=== PATIENT | female | born 1995 | race American Indian/Alaskan Native ===

== ENCOUNTER 2016-08-24 23:43 | Emergency (ER) | payer SELFPAY ==
[2016-08-25 00:47] LABS: Basophils % (Auto) 0.5 % (0.0-1.8); Eosinophils % (Auto) 3.7 % (0.0-4.3); Hematocrit 36.6 % (30.3-42.9); Hemoglobin 12.3 gm/dl (10.1-14.3); Mean Corpuscular HGB Conc 34 % (30-34); Mean Corpuscular Hemoglobin 27 pg (28-32); Mean Corpuscular Volume 81 fl (79-97); Platelet Count 455 K/mm3 (140-440); Red Blood Count 4.54 M/mm3 (3.65-5.03); Red Cell Distribution Width 14.2 % (13.2-15.2); White Blood Count 6.5 K/mm3 (4.5-11.0)
[2016-08-25 01:04] LABS: Anion Gap 14 mmol/L; Blood Urea Nitrogen 14 mg/dL (7-17); Calcium 9.2 mg/dL (8.4-10.2); Carbon Dioxide 27 mmol/L (22-30); Chloride 103.8 mmol/L (98-107); Glucose 93 mg/dL (65-100); Sodium 141 mmol/L (137-145)
[2016-08-25] MEDS ORDERED: MOTRIN PO ONE (02:34)
[2016-08-25] MEDS ORDERED: NORCO 5/325 PO ONE (02:34)
--- NOTE | 2016-08-25 02:40 | Emergency Department Report ---
HPI - General Chief Complaint: Chest Pain Time Seen by Provider: 08/25/16 02:24 - HPI HPI: Room 6 Patient is a 21-year-old female presenting with a chief complaint of headache tearing right eye and chest pain. Patient states last week she was diagnosed with strep throat and since then she has developed an occipital headache drainage from her right eye which also itches and goodwin as well as left chest pain that was sharp and pleuritic in nature. Patient does admit to a cough but states it is nonproductive. Patient denies any recent flights or long car trips. The patient gives her pain a score of 7/10. The patient states her right eye itches badly and goodwin Location: [see above] Duration: One week Quality: Sharp Severity: 7/10 Modifying factors: [see above] Context: [see above] Mode of transportation: [not driving] ED Past Medical Hx - Past Medical History Hx Asthma: Yes Additional medical history: Sciatica - Surgical History Past Surgical History?: No Additional Surgical History: tonsilectomy/adenoidectomy - Family History Family history: no significant - Social History Smoking Status: Never Smoker Substance Use Type: None - Medications Home Medications: Home Medications Medication Instructions Recorded Confirmed Last Taken Type Cetirizine HCl [ZyrTEC] 10 mg PO QHS #30 capsule 08/04/14 Unknown Rx Fluticasone [Flonase] 1 spray NS QDAY #1 bottle 08/04/14 Unknown Rx methylPREDNISolone [Medrol Dose 4 mg PO .TAPER #1 tab.ds.pk 08/04/14 Unknown Rx [place]] ALBUTEROL Inhaler [ProAir HFA 1 - 2 puff IH QID PRN #1 inha 10/25/14 Unknown Rx Inhaler] Ibuprofen [Motrin] 800 mg PO Q8HR #30 tablet 10/25/14 Unknown Rx traMADol [Ultram 50 MG tab] 50 mg PO Q6HR PRN #15 tablet 10/25/14 Unknown Rx HYDROcodone/APAP 5-325 [[place] 1 - 2 each PO Q6HR PRN #10 tablet 08/25/16 Unknown Rx 5/325] Ibuprofen [Motrin 800 MG tab] 800 mg PO Q8HR PRN #20 tablet 08/25/16 Unknown Rx Polymyxin B Sulf/Trimethoprim 1 drop OD QID #10 ml 08/25/16 Unknown Rx [Polytrim Eye Drops 30572atwkj/0.1%] ED Review of Systems ROS: Stated complaint: CHEST PAIN Other details as noted in HPI Comment: All other systems reviewed and negative Constitutional: denies: chills, fever Eyes: eye discharge ENT: denies: ear pain, throat pain Respiratory: cough Cardiovascular: denies: palpitations Endocrine: no symptoms reported Gastrointestinal: denies: abdominal pain, nausea, diarrhea Genitourinary: denies: urgency, dysuria, discharge Musculoskeletal: denies: back pain, joint swelling, arthralgia Skin: denies: rash, lesions Neurological: headache Psychiatric: denies: anxiety, depression Hematological/Lymphatic: denies: easy bleeding, easy bruising Physical Exam - Physical Exam Vital Signs: Vital Signs 08/25/16 08/25/16 00:03 00:53 Temperature 98.4 F Pulse Rate 76 Respiratory 16 20 Rate Blood Pressure 122/69 Blood Pressure 122/69 [Left] O2 Sat by Pulse 100 99 Oximetry Physical Exam: GENERAL: The patient is well-developed well-nourished female lying on stretcher not appearing to be in acute distress. [] HEENT: Normocephalic. Atraumatic. Extraocular motions are intact. Patient has moist mucous membranes. Slight injection of the conjunctiva right eye. No hyphema. No hypopyon NECK: Supple. No meningitic signs are noted. Trachea midline CHEST/LUNGS: Clear to auscultation. There is no respiratory distress noted. HEART/CARDIOVASCULAR: Regular. There is no tachycardia. There is no gallop rub or murmur. ABDOMEN: Abdomen is soft, nontender. Patient has normal bowel sounds. There is no abdominal distention. SKIN: There is no rash. There is no edema. There is no diaphoresis. NEURO: The patient is awake, alert, and oriented. The patient is cooperative. The patient has normal speech MUSCULOSKELETAL: There is no evidence of acute injury. ED Course Vital Signs 08/25/16 08/25/16 00:03 00:53 Temperature 98.4 F Pulse Rate 76 Respiratory 16 20 Rate Blood Pressure 122/69 Blood Pressure 122/69 [Left] O2 Sat by Pulse 100 99 Oximetry ED Medical Decision Making - Lab Data Result diagrams: 08/25/16 00:15 08/25/16 00:15 Laboratory Tests 08/25/16 08/25/16 08/25/16 00:15 00:15 02:36 WBC 6.5 RBC 4.54 Hgb 12.3 Hct 36.6 MCV 81 MCH 27 L MCHC 34 RDW 14.2 Plt Count 455 H Lymph % (Auto) 37.2 H [place] % (Auto) 7.6 H Eos % (Auto) 3.7 Baso % (Auto) 0.5 Lymph # 2.4 [place] # 0.5 Eos # 0.2 Baso # 0.0 Seg Neutrophils % 51.0 Seg Neutrophils # 3.3 D-Dimer Sodium 141 Potassium 4.0 Chloride 103.8 Carbon Dioxide 27 Anion Gap 14 BUN 14 Creatinine 0.7 Estimated GFR > 60 BUN/Creatinine Ratio 20.00 Glucose 93 Calcium 9.2 Troponin T < 0.010 < 0.010 Urine HCG, Qual 08/25/16 08/25/16 02:36 04:34 WBC RBC Hgb Hct MCV MCH MCHC RDW Plt Count Lymph % (Auto) [place] % (Auto) Eos % (Auto) Baso % (Auto) Lymph # [place] # Eos # Baso # Seg Neutrophils % Seg Neutrophils # D-Dimer 200.10 Sodium Potassium Chloride Carbon Dioxide Anion Gap BUN Creatinine Estimated GFR BUN/Creatinine Ratio Glucose Calcium Troponin T Urine HCG, Qual Negative - EKG Data -: EKG Interpreted by Me EKG shows normal: sinus rhythm Rate: normal - EKG Data When compared to previous EKG there are: no significant change Interpretation: unchanged when compared t (10/25/2014) - Radiology Data Radiology results: image reviewed (chest x-ray) interpreted by me: Chest x-ray-no focal infiltrates, no pneumothorax - Differential Diagnosis PE, pneumonia, bronchitis, pneumothorax, ACS, conjunctivitis Critical care attestation.: If time is entered above; I have spent that time in minutes in the direct care of this critically ill patient, excluding procedure time. ED Disposition Clinical Impression: Pleurisy, Conjunctivitis Disposition: DC-01 TO HOME OR SELFCARE Is pt being admited?: No Does the pt Need Aspirin: No Condition: Stable Instructions: Pleurisy (ED), Conjunctivitis (ED) Additional Instructions: Return to the emergency department immediately should you develop worsening symptoms, fever, inability to tolerate food or liquid or any other concerns. Prescriptions: HYDROcodone/APAP 5-325 [[place] 5/325] 1 - 2 each PO Q6HR PRN #10 tablet PRN Reason: Pain Ibuprofen [Motrin 800 MG tab] 800 mg PO Q8HR PRN #20 tablet PRN Reason: Pain Polymyxin B Sulf/Trimethoprim [Polytrim Eye Drops [id number]/0.1%] 1 drop OD QID #10 ml Referrals: PRIMARY CARE, [Primary Care Provider] - 3-5 Days MILADYS SARABIA MD [Staff Physician] - 3-5 Days (Dr. Sarabia is a industrial economics professor. Please follow up with her for further evaluation) ABDIRASHID SIMON MD [Staff Physician] - 3-5 Days (Dr. Simon is an card player. Please follow up with him for further evaluation) Time of Disposition: 05:21
[2016-08-25 03:18] VITALS: BP 122/78
--- NOTE | 2016-08-25 09:42 | XRay Report ---
ROUTINE CHEST, TWO VIEWS: HISTORY: chest pain. The trachea, heart, mediastinal contour, lung melendrez and bony thorax are unremarkable. IMPRESSION: Unremarkable chest x-ray. No significant change since 08/04/14.
== END 2016-08-25 05:49 | disposition home or self-care (01) ==
LOC: ED 23:43
DX: R09.1 Pleurisy (principal); H10.9 Unspecified conjunctivitis; J45.909 Unspecified asthma, uncomplicated
CPT/HCPCS: 36415; 71020; 80048; 81025; 84484; 85025; 85379; 93005; 93010

== ENCOUNTER 2017-07-19 13:54 | Emergency (ER) | payer MEDICAID ==
[2017-07-19 13:59] VITALS: BP 121/63
[2017-07-19] MEDS ORDERED: DELTASONE PO ONE (20:30)
--- NOTE | 2017-07-19 20:30 | Emergency Department Report ---
ED Rash HPI - HPI Chief Complaint: Skin Rash Stated Complaint: RED SPOTS ON ARMS/LEGS Time Seen by Provider: 07/19/17 20:30 Duration: 2 weeks Location: Chest, Back, Abdomen, Upper Extremities, Lower Extremities Rash Symptoms: Yes Itching (generalized to extremities and), No Facial Swelling , No Tongue/Oral Swelling, No Breathing Difficulties, No Choking Sensation, No Wheezing/Dyspnea, No Peeling, No Blistering, No Fever, No Lightheaded, No Malaise, No Myalgias Severity: severe (itching) Other History: Patient reports that she has skin rash and itching for 2 weeks and she is unaware of anything new in her environment. She reports itching and denies any pain. Denies any fever or chills. Denies any cough, stridor, wheezing, swelling of lip or tongue. Denies any respiratory difficulties. Immunizations up-to-date. Denies any insect bite. Patient described severe itching. Reports bumps all over her upper, lower extremities and abdomen and back. She says she's been taking wpcp-spk-gaonoep cortisone but is not helping. Itching is not relieved by any medication and she says she took Benadryl and that didn't help either. No exacerbating factors. She says she lives with roommates. Denies room made or kids with similar symptoms. Denies any known bed bug exposure. Patient is here by herself. Pain is 0/10 ED Review of Systems ROS: Stated complaint: RED SPOTS ON ARMS/LEGS Other details as noted in HPI Constitutional: denies: chills, fever Eyes: denies: eye pain, eye discharge, vision change ENT: denies: ear pain, throat pain Respiratory: denies: cough, shortness of breath, SOB with exertion, wheezing Cardiovascular: denies: chest pain, palpitations, dyspnea on exertion, edema, syncope Gastrointestinal: denies: abdominal pain, nausea, vomiting, diarrhea Genitourinary: denies: discharge Musculoskeletal: denies: back pain, joint swelling, arthralgia Skin: rash, pruritus. denies: lesions Neurological: denies: headache, weakness ED Past Medical Hx - Past Medical History Previous Medical History?: Yes Hx Asthma: Yes Additional medical history: Sciatica - Surgical History Past Surgical History?: Yes Additional Surgical History: tonsilectomy/adenoidectomy - Family History Family history: diabetes, hypertension - Social History Smoking Status: Never Smoker Substance Use Type: None Other Social History: Single mom - Medications Home Medications: Home Medications Medication Instructions Recorded Confirmed Last Taken Type Cetirizine HCl [ZyrTEC] 10 mg PO QHS #30 capsule 08/04/14 Unknown Rx Fluticasone [Flonase] 1 spray NS QDAY #1 bottle 08/04/14 Unknown Rx methylPREDNISolone [Medrol Dose 4 mg PO .TAPER #1 tab.ds.pk 08/04/14 Unknown Rx [place]] ALBUTEROL Inhaler [ProAir HFA 1 - 2 puff IH QID PRN #1 inha 10/25/14 Unknown Rx Inhaler] Ibuprofen [Motrin] 800 mg PO Q8HR #30 tablet 10/25/14 Unknown Rx traMADol [Ultram 50 MG tab] 50 mg PO Q6HR PRN #15 tablet 10/25/14 Unknown Rx HYDROcodone/APAP 5-325 [[place] 1 - 2 each PO Q6HR PRN #10 tablet 08/25/16 Unknown Rx 5/325] Ibuprofen [Motrin 800 MG tab] 800 mg PO Q8HR PRN #20 tablet 08/25/16 Unknown Rx Polymyxin B Sulf/Trimethoprim 1 drop OD QID #10 ml 08/25/16 Unknown Rx [Polytrim Eye Drops [id number]/0.1%] Prednisone [predniSONE 10 mg 10 mg PO .TAPER 6 Days #1 tab.ds.pk 07/19/17 Unknown Rx (6-Day Pack, 21 Tabs)] diphenhydrAMINE [Benadryl CAP] 50 mg PO QHS PRN #5 capsule 07/19/17 Unknown Rx hydrOXYzine HCL [Atarax] 25 mg PO Q6HR PRN #16 tablet 07/19/17 Unknown Rx Rash Exam - Exam General: Vital signs noted. No distress. Alert and acting appropriately. This is a 22-year-old female well-nourished well-developed in no acute distress. HEENT: No Periorbital Edema, No Conjuctival Injection, No Chemosis, No Perioral Edema, No Tongue Edema, No Uvular Edema (uvula midline and oral airways patent) , No Compromised Airway, No Drooling Lungs: Yes Good Air Exchange (CTAB), No Wheezes, No Ronchi, No Stridor, No Cough , No Labored Respirations, No Retractions, No Use of Accessory Muscles, No Other Abnormal Lung Sounds Heart: Yes Regular (S1S2), No Murmur Skin: Yes Maculopapular Rash (scattered to abdomen, chest, back and upper and lower extremities . Nontender to palpate.), Yes Erythema (mild erythema), No Urticarial Rash, No Morbilliform rash, No Bulla(e), No Excoriations, No Weeping , No Tenderness, No Edema, No Encrustations, No Other Other: Positive: Abdomen Normal (soft, nontender to palpate in all quadrants and no guarding or rebound. normal bowel sounds in all quadrants), Neurologic Normal (alert and oriented 3 and normal gait), Musculoskeletal Normal (no clubbing, cyanosis or edema. Positive pulses all extremities) ED Course Vital Signs 07/19/17 13:57 Temperature 98.6 F Pulse Rate 79 Respiratory 20 Rate Blood Pressure 121/63 O2 Sat by Pulse 100 Oximetry - Reevaluation(s) Reevaluation #1: 07/19/17 20:36 Patient given Deltasone 60 mg by mouth and emergency room for contact dermatitis. I'm unable to give her Benadryl because she is here by herself ED Medical Decision Making - Medical Decision Making ED course DX: 1:Contact dermatitis- Stable. refer to Derm 2:Pruritus-better deltasone 60 mg po and will d/c home on Steroid pack, Benadryl QHS and atarax referral to resident service coordinator PT Educated on DX, meds and need to follow up with PCP and resident service coordinator an she voiced understanding Prescription given for Prednisone dose pack for 6 days, Benadryl to take QHS and Atarax prn VSS, afebrile Patient discharge from ed in stable condition from ED. Critical care attestation.: If time is entered above; I have spent that time in minutes in the direct care of this critically ill patient, excluding procedure time. ED Disposition Clinical Impression: Rash and other nonspecific skin eruption, Pruritic condition Disposition: TO HOME OR SELFCARE Is pt being admited?: No Does the pt Need Aspirin: No Condition: Stable Instructions: Contact Dermatitis (ED), Acute Rash (ED), Itchy Skin (ED) Additional Instructions: Please keep affected areas clean and dry Take medication as prescribed Atarax and Benadryl to make you drowsy so please do not drive or operate heavy machinery while taking this medication F/U with primary care and also follow up with resident service coordinator regarding skin rash. Prescriptions: diphenhydrAMINE [Benadryl CAP] 50 mg PO QHS PRN #5 capsule PRN Reason: itching and rash hydrOXYzine HCL [Atarax] 25 mg PO Q6HR PRN #16 tablet PRN Reason: Itching Prednisone [predniSONE 10 mg (6-Day Pack, 21 Tabs)] 10 mg PO .TAPER 6 Days #1 tab.ds.pk Referrals: PRIMARY CARE, [Primary Care Provider] - 07/22/17 [facility] [Outside] - 07/22/17 YOANDY DAVIDSON MD [Staff Physician] - 07/22/17 Forms: Work/School Release Form(ED)
== END 2017-07-19 20:48 | disposition home or self-care (01) ==
LOC: ED 13:54
DX: R21 Rash and other nonspecific skin eruption (principal); L29.9 Pruritus, unspecified; J45.909 Unspecified asthma, uncomplicated; Z90.89 Acquired absence of other organs
CPT/HCPCS: 99282; J7512

== ENCOUNTER 2018-06-18 01:34 | Emergency (ER) | payer MEDICAID ==
[2018-06-18 02:40] LABS: Basophils % (Auto) 0.6 % (0.0-1.8); Eosinophils # (Auto) 0.2 K/mm3 (0.0-0.4); Eosinophils % (Auto) 2.4 % (0.0-4.3); Hematocrit 38.1 % (30.3-42.9); Hemoglobin 12.6 gm/dl (10.1-14.3); Lymphocytes % (Auto) 45.1 % (13.4-35.0); Mean Corpuscular HGB Conc 33 % (30-34); Mean Corpuscular Volume 83 fl (79-97); Monocytes # (Auto) 0.6 K/mm3 (0.0-0.8); Monocytes % (Auto) 9.1 % (0.0-7.3); Platelet Count 431 K/mm3 (140-440); Red Blood Count 4.57 M/mm3 (3.65-5.03); Red Cell Distribution Width 14.2 % (13.2-15.2)
[2018-06-18 03:30] LABS: Bilirubin,Urine NEG (Negative); Blood,Urine MOD (Negative); Color,Urine Yellow (Yellow); Mucus,Urine FEW /HPF; Protein,Urine <15 mg/dL mg/dL (Negative); Urobilinogen,Urine < 2.0 mg/dL (<2.0)
--- NOTE | 2018-06-18 07:53 | Emergency Department Report ---
ED Female HPI - General Chief complaint: Vaginal Bleeding Stated complaint: HEAD ABD PAIN SPOTTING Time Seen by Provider: 06/18/18 07:21 Source: patient Mode of arrival: Ambulatory Limitations: No Limitations - History of Present Illness Initial comments: This is a 23-year-old female who presents to ED complaining of vaginal spotting for the past 2 weeks. Patient states about 3 weeks ago she took the morning- after pill after sex with her partner. Patient denies abdominal pain, vaginal discharge, vaginal pain pelvic pain. She denies fever/ chills/nausea vomiting/ dysuria. Patient also does states she is also has left eye redness and irritation 2 days. Patient states since she has pinkeye as she's had this before in the past. - Related Data Previous Rx's Medication Instructions Recorded Last Taken Type Cetirizine HCl [ZyrTEC] 10 mg PO QHS #30 capsule 08/04/14 Unknown Rx Fluticasone [Flonase] 1 spray NS QDAY #1 bottle 08/04/14 Unknown Rx methylPREDNISolone [Medrol Dose 4 mg PO .TAPER #1 tab.ds.pk 08/04/14 Unknown Rx [place]] ALBUTEROL Inhaler (OR & NICU) 1 - 2 puff IH QID PRN #1 inha 10/25/14 Unknown Rx [ProAir HFA Inhaler] Ibuprofen [Motrin] 800 mg PO Q8HR #30 tablet 10/25/14 Unknown Rx traMADol [Ultram 50 MG tab] 50 mg PO Q6HR PRN #15 tablet 10/25/14 Unknown Rx HYDROcodone/APAP 5-325 [[place] 1 - 2 each PO Q6HR PRN #10 tablet 08/25/16 Unknown Rx 5/325] Prednisone [predniSONE 10 mg 10 mg PO .TAPER 6 Days #1 tab.ds.pk 07/19/17 Unknown Rx (6-Day Pack, 21 Tabs)] diphenhydrAMINE [Benadryl CAP] 50 mg PO QHS PRN #5 capsule 07/19/17 Unknown Rx hydrOXYzine HCL [Atarax] 25 mg PO Q6HR PRN #16 tablet 07/19/17 Unknown Rx Ibuprofen [Motrin 800 MG tab] 800 mg PO Q8HR PRN #20 tablet 06/18/18 Unknown Rx Polymyxin B Sulf/Trimethoprim 1 drop OD QID #10 ml 06/18/18 Unknown Rx [Polytrim Eye Drops [id number]/0.1%] Allergies Allergy/AdvReac Type Severity Reaction Status Date / Time peanut oil Allergy Angioedema Verified 07/19/17 13:57 ED Review of Systems ROS: Stated complaint: HEAD ABD PAIN SPOTTING Other details as noted in HPI Comment: All other systems reviewed and negative ED Past Medical Hx - Past Medical History Previous Medical History?: Yes Hx Asthma: Yes Additional medical history: Sciatica - Surgical History Past Surgical History?: Yes Additional Surgical History: tonsilectomy/adenoidectomy - Social History Smoking Status: Never Smoker Substance Use Type: None - Medications Home Medications: Home Medications Medication Instructions Recorded Confirmed Last Taken Type Cetirizine HCl [ZyrTEC] 10 mg PO QHS #30 capsule 08/04/14 Unknown Rx Fluticasone [Flonase] 1 spray NS QDAY #1 bottle 08/04/14 Unknown Rx methylPREDNISolone [Medrol Dose 4 mg PO .TAPER #1 tab.ds.pk 08/04/14 Unknown Rx [place]] ALBUTEROL Inhaler (OR & NICU) 1 - 2 puff IH QID PRN #1 inha 10/25/14 Unknown Rx [ProAir HFA Inhaler] Ibuprofen [Motrin] 800 mg PO Q8HR #30 tablet 10/25/14 Unknown Rx traMADol [Ultram 50 MG tab] 50 mg PO Q6HR PRN #15 tablet 10/25/14 Unknown Rx HYDROcodone/APAP 5-325 [[place] 1 - 2 each PO Q6HR PRN #10 tablet 08/25/16 Unknown Rx 5/325] Prednisone [predniSONE 10 mg 10 mg PO .TAPER 6 Days #1 tab.ds.pk 07/19/17 Unknown Rx (6-Day Pack, 21 Tabs)] diphenhydrAMINE [Benadryl CAP] 50 mg PO QHS PRN #5 capsule 07/19/17 Unknown Rx hydrOXYzine HCL [Atarax] 25 mg PO Q6HR PRN #16 tablet 07/19/17 Unknown Rx Ibuprofen [Motrin 800 MG tab] 800 mg PO Q8HR PRN #20 tablet 06/18/18 Unknown Rx Polymyxin B Sulf/Trimethoprim 1 drop OD QID #10 ml 06/18/18 Unknown Rx [Polytrim Eye Drops 61605lyhwp/0.1%] ED Physical Exam - General Limitations: No Limitations General appearance: alert, in no apparent distress - Head Head exam: Present: atraumatic, normocephalic - Eye Eye exam: Present: normal appearance - ENT ENT exam: Present: mucous membranes moist - Neck Neck exam: Present: normal inspection - Respiratory Respiratory exam: Present: normal lung sounds bilaterally. Absent: respiratory distress - Cardiovascular Cardiovascular Exam: Present: regular rate, normal rhythm. Absent: systolic murmur, diastolic murmur, rubs, gallop - GI/Abdominal GI/Abdominal exam: Present: soft, normal bowel sounds - Extremities Exam Extremities exam: Present: normal inspection - Back Exam Back exam: Present: normal inspection - Neurological Exam Neurological exam: Present: alert, oriented X3 - Psychiatric Psychiatric exam: Present: normal affect, normal mood - Skin Skin exam: Present: warm, dry, intact, normal color. Absent: rash ED Course Vital Signs 06/18/18 06/18/18 01:42 08:13 Temperature 98.0 F 98.2 F Pulse Rate 73 61 Respiratory 18 16 Rate Blood Pressure 116/72 Blood Pressure 109/69 [Right] O2 Sat by Pulse 99 97 Oximetry ED Medical Decision Making - Lab Data Result diagrams: 06/18/18 02:03 - Medical Decision Making 23-year-old female presents with vaginal spotting. Labs are within normal limits. Urinalysis shows no acute findings. Discussed with the parent and patient to continue Motrin after pill does also a cycle. Discussed with the patient vaginal spotting is most likely a cause from taking the morning-after pill Discussed cycle she resume in about a month. Discussed the patient follow-up with [facility] as well as outside medical clinic Patient is in no acute distress. Vital signs are normal she understands instructions. Critical care attestation.: If time is entered above; I have spent that time in minutes in the direct care of this critically ill patient, excluding procedure time. ED Disposition Clinical Impression: Vaginal spotting Disposition: DC-01 TO HOME OR SELFCARE Is pt being admited?: No Does the pt Need Aspirin: No Condition: Stable Instructions: Menstruation (ED) Additional Instructions: Make sure to follow up with the primary care physician as discussed. Follow-up with [facility] for STD screening as well as a Pap smear. Take all your medications as you've been prescribed. If you have any worsening symptoms or develop new symptoms please return to ED immediately. Prescriptions: Ibuprofen [Motrin 800 MG tab] 800 mg PO Q8HR PRN #20 tablet PRN Reason: Pain Polymyxin B Sulf/Trimethoprim [Polytrim Eye Drops 92874lhpxg/0.1%] 1 drop OD QID #10 ml Referrals: [facility] MD JAH [Primary Care Provider] - 3-5 Days [facility] [Provider Group] - 3-5 Days Forms: Work/School Release Form(ED) Time of Disposition: 07:54
[2018-06-18 08:14] VITALS: BP 109/69
== END 2018-06-18 08:14 | disposition home or self-care (01) ==
LOC: ED 01:34
DX: N93.9 Abnormal uterine and vaginal bleeding, unspecified (principal); J45.909 Unspecified asthma, uncomplicated; Z91.010 Allergy to peanuts; Z90.89 Acquired absence of other organs
CPT/HCPCS: 36415; 81001; 84702; 85025; 86850; 86900; 86901; 99283